=== PATIENT | female | born 1960 | race Caucasian/White ===

== ENCOUNTER 2020-11-18 20:04 | Inpatient (IN) | payer OTHER ==
[~2020-11-18] VITALS: Ht 154.9 cm; Wt 70.3 kg
[~2020-11-18 20:04] MED LIST: CLARITIN-D 121 EACH PO; DICLOFENAC SODI50 MG PO; INTESTINEX680 MG PO; LEVSIN/SL0.125 MG SL; TUSSI PRES-B L120 M1 PO
[2020-11-27] MEDS ORDERED: LIPITOR20 MG PO (16:35)
[2020-11-27] MEDS ORDERED: ALPRAZOLAM0.5 MG PO (16:35)
[2020-11-27] MEDS ORDERED: PEPCID AC20 MG PO (16:35)
[2020-11-27] MEDS ORDERED: WARFARIN SODIUM3 MG PO (16:35)
[2020-11-27] MEDS ORDERED: BISACODYL5 MG PO (16:35)
== END 2020-11-27 17:28 | disposition home or self-care (01) | DRG 301 ==
LOC: ER 20:04 → MEDJ 11-19 17:19 → MEDI 11-19 17:19
PROVIDERS: ADMIT Internal Medicine; ATTEND Internal Medicine
PROC: CB2YYZZ Tomographic (Tomo) Nuclear Medicine Imaging of Respiratory System using Other Radionuclide (ICD-10-PCS; principal; 2020-11-19)
PROC: BR29YZZ Computerized Tomography (CT Scan) of Lumbar Spine using Other Contrast (ICD-10-PCS; 2020-11-19)
PROC: [UNRECOGNIZED PROCEDURE] (2020-11-19)
DX: I82.412 Acute embolism and thrombosis of left femoral vein (principal); I82.442 Acute embolism and thrombosis of left tibial vein; E78.5 Hyperlipidemia, unspecified; Z20.822 Contact with and (suspected) exposure to COVID-19; M79.605 Pain in left leg

== ENCOUNTER 2020-12-13 09:07 | Emergency (ER) | payer OTHER ==
[~2020-12-13] VITALS: Ht 160 cm; Wt 68.0 kg
[~2020-12-13 09:07] MED LIST changes: +ALPRAZOLAM0.5 MG PO; +BISACODYL5 MG PO; +LIPITOR20 MG PO; +PEPCID AC20 MG PO; +WARFARIN SODIUM3 MG PO
[2020-12-13] MEDS ORDERED: SKELAXIN800 MG PO (16:47)
== END 2020-12-13 17:11 ==
LOC: ER 09:07
DX: M79.605 Pain in left leg (principal); R20.2 Paresthesia of skin

== ENCOUNTER 2021-03-07 09:00 | Outpatient (CLI) | payer OTHER ==
[~2021-03-07 09:00] MED LIST changes: +SKELAXIN800 MG PO
== END 2021-03-07 09:01 | disposition home or self-care (01) ==
LOC: NUCLEAR 09:00
PROVIDERS: ATTEND Internal Medicine Hematology & Oncology
DX: I82.412 Acute embolism and thrombosis of left femoral vein (principal); I87.2 Venous insufficiency (chronic) (peripheral)

== ENCOUNTER 2021-03-22 11:54 | Outpatient (CLI) | payer OTHER | END 2021-03-22 12:02 | disposition home or self-care (01) | LOC: MAMO-SONO 11:54 | PROVIDERS: ATTEND General Practice | DX: N63.0 Unspecified lump in unspecified breast (principal) ==

== ENCOUNTER 2021-09-12 00:38 | Inpatient (IN) | payer OTHER ==
[~2021-09-12] VITALS: Ht 160 cm; Wt 63.5 kg
--- NOTE | 2021-09-12 00:57 | NUR ---
SE RECIBE PTE FEMENINA ALERTA Y ORIENTADA EN LAS GINA ESFERAS REFIERE ELIDA DOLOR ABDOMINAL Y VOMITOS LUEGO DE INGERIR COMIDA [place] HACE VARIAS HORAS.
--- NOTE | 2021-09-12 02:05 | NUR ---
PTE EVALUADA POR EL DR TIAN JAMES ORDENA EL [place]. MS L ZENG ORIENTA SOBRE EL TX ORDENADO, LO CUAL REFIERE ENTENDER, REALIZA PRUEBAS DE LABORATORIO Y ADMINISTRA MEDICAMENTOS AMOS ORDEN MEDICA Y SIGUIENDO MEDIDAS ASEPTICAS. SE ENTREGA ENVASE PARA MUESTRA DE U/A Y ORIENTADA SOBRE EL MISMO. CT PO ABD-PELVICO PENDIENTE, PTE ORIENTADA SOBRE PROCESO, REFIERE ENTENDER.
--- NOTE | 2021-09-12 02:27 | NUR ---
SE RECIBE LLAMADA DE PERSONAL DE LABORATORIO , ESTA REFIERE QUE LAS MUESTRAS DE ALANA TOMADAS POR PRIMERA VEZ LLEGARON DANADAS AL LAB. SE ROSSY MUESTRAS NUEVAMENTE CON VACUNTAINER Y ESTAS FUERON ENVIADAS AL LAB. PTE EN ESPERA DE RESULTADOS DE LAB, Y CT.
--- NOTE | 2021-09-12 03:20 | NUR ---
SE RECIBE LLAMADA POR SEGUNDA VEZ DE PERSONAL DE LABORATORIO, NOTIFICANDO MUESTRAS HEMOLIZADAS POR SEGUNDA VEZ. FELICIA LOPEZ VUELVE A MARYLOU MUESTRAS Y ESTAS SON LLEVADAS POR FELICIA LOPEZ AL LABORATORIO.
--- NOTE | 2021-09-12 08:16 | NUR ---
PACIENTE ALERTA Y ORIENTADA POR GINA. SE OFRECE REUBEN PARA EVALUAR CONDICION PACIENTE CON IVF'S PATENTES, EN BJO TIARRA BARCLAY .9NSS, AREA MELINA DE EDEMA Y/O ERITEMA. SE REALIZAN MUESTRAS AMOS ORDEN MEDICA CON MEDIDAS ASEPTI- IVAN CORRESPONDIENTES. SE REALIZA EKG Y SE ROSSY MEDIDAS PARA MEDIAS ANTIEMBO- LICAS. MR VERDUZCO DE TERAPIA RESPIRATORIA NOTIFICADO DE INCENTIVE SPIROMETRIA SE MATEO PACIENTE CON BARANDAS ELEVADAS POR BROWNING SEGURIDAD, ES ESPERA DE SER LLAMADA DE CHRISTOS DE OPERACIONES.
[2021-09-14] MEDS ORDERED: AMOX1TAB5 PO (07:54)
[2021-09-14] MEDS ORDERED: PROTONIX40 MG PO (07:55)
[2021-09-14] MEDS ORDERED: ULTRACET PO (07:55)
[2021-09-15] MEDS ORDERED: CHILDREN'S ASPI81 MG (09:18)
[2021-09-15] MEDS ORDERED: INTESTINEX680 M1 PO (12:58)
== END 2021-09-14 09:40 | disposition home or self-care (01) | DRG 343 ==
LOC: ER 00:38 → SEC-K 07:47 → SURH 07:47 → O/R 15:42 → SURH 15:53
PROVIDERS: ADMIT Surgery; ATTEND Surgery
PROC: BW21YZZ Computerized Tomography (CT Scan) of Abdomen and Pelvis using Other Contrast (ICD-10-PCS; 2021-09-12)
PROC: 0DTJ0ZZ Resection of Appendix, Open Approach (ICD-10-PCS; principal; 2021-09-12 15:45)
DX: K35.890 Other acute appendicitis without perforation or gangrene (principal); D72.828 Other elevated white blood cell count; Z86.72 Personal history of thrombophlebitis; Z20.822 Contact with and (suspected) exposure to COVID-19

== ENCOUNTER 2021-09-15 09:09 | Emergency (ER) | payer OTHER ==
[~2021-09-15] VITALS: Ht 160 cm; Wt 65.8 kg
[~2021-09-15 09:09] MED LIST changes: +AMOX1TAB5 PO; +PROTONIX40 MG PO; +ULTRACET PO
[2021-09-15] MEDS ORDERED: CHILDREN'S ASPI81 MG (09:18)
[2021-09-15] MEDS ORDERED: INTESTINEX680 M1 PO (12:58)
== END 2021-09-15 13:18 ==
LOC: ER 09:09
DX: R50.82 Postprocedural fever (principal); Z98.890 Other specified postprocedural states; Z20.822 Contact with and (suspected) exposure to COVID-19

== ENCOUNTER 2021-09-20 11:34 | Emergency (ER) | payer OTHER ==
[~2021-09-20] VITALS: Ht 157.5 cm; Wt 61.2 kg
[~2021-09-20 11:34] MED LIST changes: +CHILDREN'S ASPI81 MG; +INTESTINEX680 M1 PO
== END 2021-09-20 15:33 | disposition home or self-care (01) ==
LOC: ER 11:34
DX: R10.11 Right upper quadrant pain (principal)

== ENCOUNTER 2021-12-19 08:42 | Emergency (ER) | payer OTHER ==
[~2021-12-19] VITALS: Ht 160 cm; Wt 66.2 kg
[2021-12-19] MEDS ORDERED: EC-NAPROSYN375 MG PO (11:43)
[2021-12-19] MEDS ORDERED: DICLOFENAC POTA50 MG PO (11:57)
== END 2021-12-19 12:06 | disposition home or self-care (01) ==
LOC: ER 08:42
DX: S39.92XA Unspecified injury of lower back, initial encounter (principal); W18.30XA Fall on same level, unspecified, initial encounter; Y93.F1 Activity, caregiving, bathing; Y92.012 Bathroom of single-family (private) house as the place of occurrence of the external cause; K57.92 Diverticulitis of intestine, part unspecified, without perforation or abscess without bleeding

== ENCOUNTER 2022-03-05 14:27 | Emergency (ER) | payer OTHER ==
[~2022-03-05] VITALS: Ht 160 cm; Wt 68.0 kg
[~2022-03-05 14:27] MED LIST changes: +DICLOFENAC POTA50 MG PO; +EC-NAPROSYN375 MG PO; +ELIQUIS5 MG PO
[2022-03-05] MEDS ORDERED: CIPRO500 MG/5 M PO (23:11)
== END 2022-03-05 23:55 | disposition home or self-care (01) ==
LOC: ER 14:27
DX: M54.9 Dorsalgia, unspecified (principal)

== ENCOUNTER 2022-06-24 13:17 | Outpatient (CLI) | payer OTHER ==
[~2022-06-24 13:17] MED LIST changes: +CIPRO500 MG/5 M PO
== END 2022-06-24 13:24 | disposition home or self-care (01) ==
LOC: RAD 13:17
PROVIDERS: ATTEND General Practice
DX: S22.32XA Fracture of one rib, left side, initial encounter for closed fracture (principal)

== ENCOUNTER 2022-08-09 08:59 | Outpatient (CLI) | payer OTHER | END 2022-08-09 15:19 | disposition home or self-care (01) | LOC: LAB 08:59 | PROVIDERS: ATTEND General Practice | DX: E78.2 Mixed hyperlipidemia (principal); E03.9 Hypothyroidism, unspecified; E11.69 Type 2 diabetes mellitus with other specified complication; E55.9 Vitamin D deficiency, unspecified; R30.0 Dysuria ==

== ENCOUNTER 2022-10-24 09:27 | Emergency (ER) | payer OTHER ==
[~2022-10-24] VITALS: Ht 160 cm; Wt 63.5 kg
== END 2022-10-24 12:08 | disposition home or self-care (01) ==
LOC: ER 09:27
DX: H66.91 Otitis media, unspecified, right ear (principal)

== ENCOUNTER → 2022-12-04 09:26 | Outpatient (CLI) | payer OTHER | END | disposition home or self-care (01) | LOC: LAB 09:26 | PROVIDERS: ATTEND Internal Medicine Hematology & Oncology | DX: E78.5 Hyperlipidemia, unspecified (principal); D53.9 Nutritional anemia, unspecified; E55.9 Vitamin D deficiency, unspecified; E78.2 Mixed hyperlipidemia; D64.9 Anemia, unspecified; D03.9 Melanoma in situ, unspecified; E03.9 Hypothyroidism, unspecified; Z11.3 Encounter for screening for infections with a predominantly sexual mode of transmission; N39.8 Other specified disorders of urinary system; Z12.11 Encounter for screening for malignant neoplasm of colon; Z79.01 Long term (current) use of anticoagulants; D47.2 Monoclonal gammopathy; R74.02 Elevation of levels of lactic acid dehydrogenase [LDH] ==

== ENCOUNTER → 2022-12-24 | Outpatient (CLI) | payer OTHER | END | disposition home or self-care (01) | LOC: MAMO-SONO 09:19 | PROVIDERS: ATTEND Obstetrics & Gynecology | DX: Z12.31 Encounter for screening mammogram for malignant neoplasm of breast (principal); N64.4 Mastodynia; R10.2 Pelvic and perineal pain ==

== ENCOUNTER → 2023-02-14 | Emergency (ER) | payer OTHER ==
[~2023-02-14] VITALS: Ht 160 cm; Wt 65.8 kg
[~2023-02-14] MED LIST changes: +LIPITOR40 M1 PO
[2023-02-14 13:58] LABS: HEMATOCRIT 43.2 % (36.0-45.00); HEMOGLOBIN 14.8 g/dL (12.0-15.00); MEAN CELL VOLUME 91.8 fL (80.00-100.00); MEAN CORPUSCULAR HEMOGLOBIN 31.4 pg (27.00-32.0); MEAN CORPUSCULAR HGB CONC 34.1 g/dl (32.0-36.0); PLATELET COUNT 307 K/uL (150-450); RED CELL DISTRIBUTION WIDTH 14.4 % (11.5-14.5)
[2023-02-14 14:18] LABS: CALCIUM 9.1 mg/dL (8.5-10.1); CREATININE SERUM 0.78 mg/dL (0.55-1.02); GFR 74.59; POTASSIUM 4.06 mEq/L (3.5-5.1)
== END | disposition home or self-care (01) ==
LOC: ER 12:18
PROVIDERS: General Practice
DX: F41.9 Anxiety disorder, unspecified (principal); R07.89 Other chest pain

== ENCOUNTER 2023-03-05 09:07 | Outpatient (CLI) | payer OTHER | END 2023-03-05 09:08 | disposition home or self-care (01) | LOC: NUCLEAR 09:07 | PROVIDERS: ATTEND Internal Medicine Cardiovascular Disease | DX: I82.492 Acute embolism and thrombosis of other specified deep vein of left lower extremity (principal) ==

== ENCOUNTER 2023-04-22 09:21 | Emergency (ER) | payer OTHER ==
[~2023-04-22] VITALS: Ht 160 cm; Wt 67.1 kg
== END 2023-04-22 14:08 | disposition home or self-care (01) ==
LOC: ER
DX: U07.1 COVID-19 (principal)

== ENCOUNTER 2023-05-26 11:00 | Outpatient (CLI) | payer OTHER | END 2023-05-26 11:07 | disposition home or self-care (01) | LOC: RAD 11:00 | PROVIDERS: ATTEND General Practice | DX: J45.991 Cough variant asthma (principal); M54.2 Cervicalgia ==

== ENCOUNTER 2023-08-02 18:11 | Emergency (ER) | payer OTHER ==
[~2023-08-02] VITALS: Ht 160 cm; Wt 59.0 kg
[2023-08-02 20:06] LABS: MEAN CELL VOLUME 92.3 fL (80.00-100.00); MEAN CORPUSCULAR HEMOGLOBIN 30.7 pg (27.00-32.0); MEAN CORPUSCULAR HGB CONC 33.3 g/dl (32.0-36.0); PLATELET COUNT 318 K/uL (150-450); RED BLOOD COUNT 4.87 M/uL (4.00-6.00); RED CELL DISTRIBUTION WIDTH 14.7 % (11.5-14.5)
[2023-08-02 20:46] LABS: BILIRUBIN TOTAL 0.5 mg/dL (0.3-1.2); CALCIUM 8.8 mg/dL (8.5-10.1); CREATININE SERUM 0.76 mg/dL (0.55-1.02); GFR 76.62
[2023-08-02 20:49] LABS: POTASSIUM 4.76 mEq/L (3.5-5.1)
[2023-08-02] MEDS ORDERED: hydrOXYzine PAMOATE 25 MG CAPSULE PO ONE (22:15)
== END 2023-08-02 22:19 | disposition home or self-care (01) ==
LOC: ER 18:11
PROVIDERS: Emergency Medicine
DX: R07.89 Other chest pain (principal); F41.9 Anxiety disorder, unspecified

== ENCOUNTER 2023-11-29 10:01 | Emergency (ER) | payer OTHER ==
[~2023-11-29] VITALS: Ht 160 cm; Wt 59.0 kg
[~2023-11-29 10:01] MED LIST changes: +PROAIR RESPICL90 MCG IH; +TUSNEL LIQUID178 ML PO; +XOPENEX CO1.25 MG/0. IH; +ZITHROMAX500 MG PO
[2023-11-29] MEDS ORDERED: ACETAMINOPHEN 500 MG GEL..CAP PO ONE ×2 (13:24→14:00)
== END 2023-11-29 14:08 | disposition home or self-care (01) ==
LOC: ER 10:01
DX: S52.571A Other intraarticular fracture of lower end of right radius, initial encounter for closed fracture (principal); W18.39XA Other fall on same level, initial encounter; Y93.89 Activity, other specified; Y92.018 Other place in single-family (private) house as the place of occurrence of the external cause; Y99.9 Unspecified external cause status

== ENCOUNTER 2024-02-06 12:36 | Outpatient (CLI) | payer OTHER | END 2024-02-06 12:37 | disposition home or self-care (01) | LOC: NUCLEAR 12:36 | PROVIDERS: ATTEND Obstetrics & Gynecology | DX: M81.0 Age-related osteoporosis without current pathological fracture (principal) ==

== ENCOUNTER 2024-04-22 12:04 | Emergency (ER) | payer OTHER ==
[~2024-04-22] VITALS: Ht 157.5 cm; Wt 61.2 kg
[2024-04-22 12:56] VITALS: BP 140/80; O2SAT 100
[2024-04-22] MEDS ORDERED: 8 HOUR650 MG PO (18:32)
== END 2024-04-22 18:45 | disposition home or self-care (01) ==
LOC: ER 12:06
DX: I82.402 Acute embolism and thrombosis of unspecified deep veins of left lower extremity (principal); M79.10 Myalgia, unspecified site